=== PATIENT | male | born 1955 | race Hispanic/Latino ===

== ENCOUNTER 2018-03-04 11:18 | Emergency (ER) | payer BC ==
[2018-03-04 11:18] VITALS: BMI 31.4
[2018-03-04 11:26] VITALS: TEMP 98
--- NOTE | 2018-03-04 11:47 | ED PDOC ---
Arrival/HPI - General Chief Complaint: Abnormal Skin Integrity Time Seen by Provider: 03/04/18 11:33 Historian: Patient, Spouse () - History of Present Illness Narrative History of Present Illness (Text): 03/04/18 11:40 A 62 year old male, whose past medical history includes cellulitis to left elbow , Hypertension, and diabetes, who is accompanied by and presents to the emergency department complaining of left elbow cellulitis. Patient's reports patient was in [place] recently, and after having taken a shower while there, left elbow skin began peeling. Patient denies fever, left elbow pain, no pain with motion, or any other complaints at this time. No PMD Past Medical History - Provider Review Nursing Documentation Reviewed: Yes - Cardiac Hx Hypertension: Yes - Pulmonary Hx Respiratory Disorders: No - Neurological Hx Neurological Disorder: No - HEENT Hx HEENT Disorder: No - Renal Hx Renal Disorder: No - Endocrine/Metabolic Hx Diabetes Mellitus Type 2: Yes - Hematological/Oncological Hx Blood Disorders: No - Integumentary Hx Dermatological Disorder: No - Musculoskeletal/Rheumatological Hx Falls: Yes - Gastrointestinal Hx Gastroesophageal Reflux: Yes - Genitourinary/Gynecological Hx Genitourinary Disorders: No - Psychiatric Hx Depression: No Hx Emotional Abuse: No Hx Physical Abuse: No Hx Substance Use: No - Surgical History Hx Orthopedic Surgery: Yes (LEFT Rotator cuff and knee surgery) - Suicidal Assessment Feels Threatened In Home Enviroment: No Family/Social History - Physician Review Nursing Documentation Reviewed: Yes Family/Social History: No Known Family HX Smoking Status: Never Smoked Hx Alcohol Use: No Hx Substance Use: No Hx Substance Use Treatment: No Allergies/Home Meds Allergies/Adverse Reactions: Allergies No Known Allergies Allergy (Verified 03/04/18 11:26) Home Medications: Home Meds Medication Instructions Recorded Confirmed Empagliflozin [Jardiance] 10 mg PO DAILY 03/04/18 03/04/18 Ibuprofen [Motrin Tab] 800 mg PO BID 03/04/18 03/04/18 Omeprazole Magnesium [Prilosec Otc] 20 mg PO DAILY 03/04/18 03/04/18 Sitagliptin Phos/Metformin HCl 1 tab PO DAILY 03/04/18 03/04/18 [Janumet 50-1,000 mg Tablet] Valsartan [Diovan] 160 mg PO DAILY 03/04/18 03/04/18 Review of Systems - Physician Review All systems were reviewed & negative as marked: Yes - Review of Systems Constitutional: absent: Fevers Musculoskeletal: absent: Other (no left elbow pain, as well as no pain with movement.) Skin: Cellulitis (left elbow) Physical Exam - Physical Exam Narrative Physical Exam (Text): Gen: VS reviewed, alert, well devloped, well nourished, nontoxic, mild distress. ENT: normal pharynx Eye: EOMI, PERRL Neck: no JVD, supple, no adenopathy CV: regular rate, regular rhythm, no rubs, no murmur, no gallops, S1, S2, pulses equal and strong Pulm: no distress, lear to auscultation, no wheeze, no rhonchi, breath sounds equal, no rales Abd: soft, nontender, no guarding, no rebound, no rigidity, normal bowel sounds Ext: no edema, left elbow swelling to posterior aspect over bursitis sac, full ROM to left elbow, no tenderness to palpation Skin: good color, no rash, no cyanosis, partial skin tear with mild surrounding skin changes, no drainage, no foul odor Psych: responds appropriately to questions, normal affect Neuro: oriented x 3, CN2-12 intact grossly, motor intact, sensation intact Vital Signs Reviewed: Yes Vital Signs Temp Pulse Resp BP Pulse Ox 03/04/18 11:24 98 F 76 18 99/61 L 96 Temperature: Afebrile Blood Pressure: Hypotensive Pulse: Regular Respiratory Rate: Normal Appearance: Positive for: Well-Appearing, Non-Toxic, Comfortable Pain Distress: None Mental Status: Positive for: Alert and Oriented X 3 Medical Decision Making ED Course and Treatment: 03/04/18 11:45 Impression: 62 year old male with left elbow cellulitis. Physical exam shows left elbow swelling to posterior aspect over bursitis sac, full ROM to left elbow, no tenderness to palpation; partial skin tear with mild surrounding skin changes, no drainage, no foul odor. Plan: -- Labs -- Reassess and disposition Progress Notes: 03/04/18 13:26 patient seen for left olecranon bursitis. no clinical signs of joint involvement. patient is afebrile and nontoxic appearing and appears safe for initial po outpt tx. patient understands and is agreeable to return for any new or worsening symptoms. - Lab Interpretations Lab Results: 03/04/18 12:30 03/04/18 12:30 Lab Results 03/04/18 12:30: Sodium 141, Potassium 4.0, Chloride 104, Carbon Dioxide 24, Anion Gap 17, BUN 20, Creatinine 0.8, Est GFR ( Amer) > 60, Est GFR (Non- Af Amer) > 60, Random Glucose 140 H, Calcium 9.0 03/04/18 12:30: WBC 6.2 D, RBC 4.28, Hgb 13.0 L, Hct 37.2 L, MCV 86.9, MCH 30.4 , MCHC 34.9, RDW 14.4, Plt Count 183, MPV 10.8, Gran % 74.1 H, Lymph % (Auto) 16.9 L, [place] % (Auto) 6.8 H, Eos % (Auto) 1.9, Baso % (Auto) 0.3, Gran # 4.56, Lymph # (Auto) 1.0 L, [place] # (Auto) 0.4, Eos # (Auto) 0.1, Baso # (Auto) 0.02 I have reviewed the lab results: Yes - Scribe Statement The provider has reviewed the documentation as recorded by the Froilan Amador Provider Scribe Provider Scribe Attestation: All medical record entries made by the Scribe were at my direction and personally dictated by me. I have reviewed the chart and agree that the record accurately reflects my personal performance of the history, physical exam, medical decision making, and the department course for this patient. I have also personally directed, reviewed, and agree with the discharge instructions and disposition. Disposition/Present on Arrival - Present on Arrival Any Indicators Present on Arrival: No History of DVT/PE: No History of Uncontrolled Diabetes: Yes Urinary Catheter: No History of Decub. Ulcer: No History Surgical Site Infection Following: None - Disposition Have Diagnosis and Disposition been Completed?: Yes Diagnosis: Bursitis Disposition: HOME/ ROUTINE Disposition Time: 13:30 Patient Plan: Discharge Patient Problems: Current Active Problems Problem Status Onset Bursitis Acute Condition: GOOD Discharge Instructions (ExitCare): Bursitis Print Language: TAJIK Additional Instructions: ERICK SMITH, thank you for letting us take care of you today. Your provider was Dr. Guevara Montgomery and you were treated for bursitis. The emergency medical care you received today was directed at your acute symptoms. If you were prescribed any medication, please fill it and take as directed. It may take several days for your symptoms to resolve. Return to the Emergency Department if your symptoms worsen, do not improve, or if you have any other problems. Please contact your doctor or call one of the physicians/clinics you have been referred to that are listed on the Patient Visit Information form that is included in your discharge packet. Bring any paperwork you were given at discharge with you along with any medications you are taking to your follow up visit. Our treatment cannot replace ongoing medical care by a primary care provider outside of the emergency department. Thank you for allowing the [facility] team to be part of your care today. If you had an X-Ray or CT scan: A Radiologist will review the ED reading if any change in treatment is needed we will contact you. If you had a blood, urine, or wound culture: It will take several days for the results, if any change in treatment is needed we will contact you. If you had an STI test: It will take 48 hours for the results. Please call after 1 week if you have not heard back. Prescriptions: Cephalexin [cephalexin] 500 mg PO QID 10 Days #40 cap Referrals: Jan Matta DO [Staff Provider] - Follow up with primary Forms: [employer] ([place])
[2018-03-04 12:41] LABS: BASO # 0.02 K/mm3 (0.0-2.0); BASO % 0.3 % (0.0-3.0); EOS # 0.1 (0.0-0.7); EOS % 1.9 % (1.5-5.0); GRAN # 4.56 (1.4-6.5); GRAN % 74.1 % (50.0-68.0); LYMPH % 16.9 % (22.0-35.0); MEAN CELL VOLUME 86.9 fl (80.0-105.0); MEAN CORPUSCULAR HEMOGLOBIN 30.4 pg (25.0-35.0); MEAN CORPUSCULAR HGB CONC 34.9 g/dl (31.0-37.0); MEAN PLATELET VOLUME 10.8 fl (7.0-11.0); MONO # 0.4 (0.1-0.6); MONO % 6.8 % (1.0-6.0); RBC 4.28 10^6/uL (3.5-6.1); RED CELL DISTRIBUTION WIDTH 14.4 % (11.5-14.5); WHITE BLOOD COUNT 6.2 10^3/ul (4.5-11.0)
[2018-03-04 12:49] LABS: BLOOD UREA NITROGEN 20 mg/dL (7-21); GFR AFRICAN-AMERICAN > 60; GFR NON-AFRICAN AMERICAN > 60
[2018-03-04 13:53] VITALS: BP 105/70; PULSE 72; RESP 16; O2SAT 99
== END 2018-03-04 13:54 | disposition home or self-care (01) ==
LOC: ED 11:18
DX: M71.522 Other bursitis, not elsewhere classified, left elbow (principal)